=== PATIENT | male | born 1940 | race Caucasian/White ===

== ENCOUNTER 2021-06-12 08:00 | Day surgery (SDC) | payer OTHER, MEDICARE ==
[2021-06-10 12:16] LABS: Absolute Lymphocytes (CBC) 2.3 K/uL (0.7-4.9); Hematocrit 45.5 % (39.6-49.0); Lymphocytes % 34.6 % (15.3-44.8); MPV 9.7 fL (7.6-11.3); RBC Red Blood Cell Count 5.33 M/uL (4.33-5.43)
[2021-06-10 12:18] LABS: Protime INR 1.05
[2021-06-10 12:29] LABS: ALT/SGPT 13 U/L (12-78); AST/SGOT 10 U/L (15-37); Albumin 3.3 g/dL (3.4-5.0); Alkaline Phosphatase 76 U/L (45-117); BUN Blood Urea Nitrogen 13 mg/dL (7-18); Bicarbonate 28 mmol/L (21-32); Bilirubin Total 0.7 mg/dL (0.2-1.0); Glucose Level 93 mg/dL (74-106); Potassium 4.2 mmol/L (3.5-5.1); Protein, Total 6.9 g/dL (6.4-8.2); Sodium Level 139 mmol/L (136-145)
[2021-06-12] MEDS ORDERED: HEPARIN 5000 UNIT/ML 1 ML VIAL ONE (08:02)
[2021-06-12] MEDS ORDERED: MIDAZOLAM HCL 2 MG/2 ML INJ ONE (08:03)
[2021-06-12] MEDS ORDERED: VERAPAMIL HCL 10 MG/4 ML VIAL IV ONE (08:03)
[2021-06-12] MEDS ORDERED: CLOPIDOGREL 75 MG TABLET ONE (08:03)
[2021-06-12] MEDS ORDERED: NITROGLYCERIN/D5W 25 MG/250 ML BTL IV ONE (08:04)
[2021-06-12] MEDS ORDERED: ASPIRIN 325 MG TAB ONE (08:04)
[2021-06-12] MEDS ORDERED: HEPARIN 10,000 UNIT/10 ML VIAL IV ONE (08:04)
[2021-06-12] MEDS ORDERED: TICAGRELOR 90 MG TABLET PO ONE (08:04)
[2021-06-12] MEDS ORDERED: NITROGLYCERIN 100 MCG/ML SYR (for cath lab use only) IV ONE (08:04)
[2021-06-12] MEDS ORDERED: ATROPINE SULF 1 MG/10 ML SYR IV ONE (08:04)
[2021-06-12] MEDS ORDERED: LIDOCAINE 1% 20 ML MDV ONE (08:08)
[2021-06-12] MEDS ORDERED: HEPA 1000U/500MLS 2,000 UNIT/1,000 ML BAG IV ONE (08:08)
[2021-06-12] MEDS ORDERED: NA CHLORIDE 0.9% 500 ML ONE (08:27)
[2021-06-12] MEDS ORDERED: FENTANYL CITR 100 MCG/2 ML ONE (08:44)
[2021-06-12] MEDS ORDERED: DIPHENHYDRAMINE 50 MG/ML VIAL ONE (09:07)
[2021-06-12] MEDS ORDERED: METHYLPREDNISOLONE 125 MG INJ ONE (09:08)
[2021-06-12 11:59] VITALS: BP 133/70; O2SAT 92
== END 2021-06-12 12:00 | disposition home or self-care (01) ==
LOC: CCL 08:00
PROVIDERS: ATTEND Internal Medicine Gastroenterology
DX: I25.10 Atherosclerotic heart disease of native coronary artery without angina pectoris (principal); I71.4 Abdominal aortic aneurysm, without rupture; I65.29 Occlusion and stenosis of unspecified carotid artery; I10 Essential (primary) hypertension; I73.9 Peripheral vascular disease, unspecified; I82.491 Acute embolism and thrombosis of other specified deep vein of right lower extremity; E78.00 Pure hypercholesterolemia, unspecified; E78.5 Hyperlipidemia, unspecified; F17.200 Nicotine dependence, unspecified, uncomplicated; Z79.899 Other long term (current) drug therapy; Z85.9 Personal history of malignant neoplasm, unspecified; Z91.041 Radiographic dye allergy status; Z20.822 Contact with and (suspected) exposure to COVID-19; Z82.49 Family history of ischemic heart disease and other diseases of the circulatory system
CPT/HCPCS: 85025; 36415; 85610; 85730; 80053; 93458; U0003; C1893; J1644 ×2; J2250; J3010; J7040; J1200; J2930; Q9966